=== PATIENT | male | born 1995 | race Caucasian/White ===

== ENCOUNTER 2016-10-17 02:34 | Emergency (ER) | payer SELFPAY ==
[~2016-10-17] VITALS: Ht 165.1 cm; Wt 76.2 kg
[2016-10-17 03:17] LABS: PLATELET COUNT 253 x10^3mcL (130-400); RED CELL DISTRIBUTION WIDTH 12.6 % (11.5-14.5)
[2016-10-17 03:22] LABS: BASOPHIL % 5.5 % (0-2)
[2016-10-17 04:05] LABS: CARBON DIOXIDE 29.2 mmol/L (21-32); CHLORIDE SERUM 103 mmol/L (98-107); CREATININE SERUM 0.7 mg/dL (0.7-1.3); GFR1 > 60 mL/min; GLUCOSE SERUM 75 mg/dL (74-106); POTASSIUM SERUM 3.4 mmol/L (3.5-5.1); SODIUM SERUM 141 mmol/L (136-145)
[2016-10-17 04:10] LABS: ALBUMIN 4.7 g/dL (3.4-5.0); ALKALINE PHOSPHATASE 88 U/L (46-116); ALT/SGPT 28 U/L (16-63); AST/SGOT 16 U/L (15-37); BILIRUBIN TOTAL 0.84 mg/dL (0.20-1.00); TOTAL PROTEIN, SERUM 8.1 g/dL (6.4-8.2)
[2016-10-17 05:25] VITALS: BP 142/80
== END 2016-10-17 05:25 | disposition home or self-care (01) ==
LOC: ED 02:34
PROVIDERS: Emergency Medicine
DX: R55 Syncope and collapse (principal)

== ENCOUNTER 2016-11-13 22:31 | Emergency (ER) | payer MEDICAID ==
[2016-11-13 23:55] VITALS: BP 135/88
== END 2016-11-14 00:07 | disposition home or self-care (01) ==
LOC: ED 22:31
DX: A08.4 Viral intestinal infection, unspecified (principal); R42 Dizziness and giddiness; F43.9 Reaction to severe stress, unspecified; R51 Headache
CPT/HCPCS: Q0162

== ENCOUNTER 2017-01-01 22:04 | Emergency (ER) | payer SELFPAY ==
[2017-01-02 00:12] VITALS: BP 116/64
== END 2017-01-02 00:12 | disposition home or self-care (01) ==
LOC: ED 22:04
DX: J40 Bronchitis, not specified as acute or chronic (principal); M41.9 Scoliosis, unspecified; Z79.899 Other long term (current) drug therapy

== ENCOUNTER 2019-03-24 21:04 | Emergency (ER) | payer SELFPAY ==
[~2019-03-24] VITALS: Ht 167.6 cm; Wt 73.5 kg
[2019-03-24 21:10] VITALS: Ht 167.6 cm; Wt 73.5 kg
[2019-03-24 23:39] VITALS: BP 123/86
== END 2019-03-24 23:39 | disposition home or self-care (01) ==
LOC: ED 21:04
DX: M94.0 Chondrocostal junction syndrome [Tietze] (principal); F41.9 Anxiety disorder, unspecified